=== PATIENT | female | born 1965 | race Caucasian/White ===

== ENCOUNTER → 2023-12-24 13:41 | Outpatient (REF) | payer BC, SELFPAY | LOC: RCS 13:41 | PROVIDERS: ATTENDING PHYSICIAN Internal Medicine | DX: I34.1 Nonrheumatic mitral (valve) prolapse (principal) | CPT/HCPCS: 93306 ==

== ENCOUNTER → 2024-01-15 15:18 | Outpatient (REF) | payer BC, SELFPAY | LOC: WDC 15:18 | PROVIDERS: ATTENDING PHYSICIAN Nurse Practitioner Family; FAMILY PHYSICIAN Internal Medicine | DX: Z12.31 Encounter for screening mammogram for malignant neoplasm of breast (principal) | CPT/HCPCS: 77063; 77067 ==

== ENCOUNTER → 2024-01-22 06:13 | Day surgery (SDC) | payer BC, SELFPAY | LOC: GI 06:13 | PROVIDERS: ATTENDING PHYSICIAN Surgery | DX: Z12.11 Encounter for screening for malignant neoplasm of colon (principal); Z86.010 Personal history of colon polyps; K64.9 Unspecified hemorrhoids; K57.30 Diverticulosis of large intestine without perforation or abscess without bleeding | CPT/HCPCS: G0105 ==

== ENCOUNTER → 2025-01-15 15:49 | Outpatient (REF) | payer BC, SELFPAY | LOC: WDC 15:49 | PROVIDERS: ATTENDING PHYSICIAN Internal Medicine | DX: Z12.31 Encounter for screening mammogram for malignant neoplasm of breast (principal) | CPT/HCPCS: 77063; 77067 ==

== ENCOUNTER → 2025-03-12 09:34 | Outpatient (REF) | payer BC, SELFPAY | LOC: RAD 09:34 | PROVIDERS: ATTENDING PHYSICIAN Internal Medicine | DX: Z13.820 Encounter for screening for osteoporosis (principal) | CPT/HCPCS: 77080 ==